=== PATIENT | female | born 1990 | race Caucasian/White ===

== ENCOUNTER 2021-05-03 20:06 | Inpatient (IN) | payer OTHER ==
[2021-05-03] MEDS: ELECTROLYTE-148 SOLN 1,000 ML IV SCH (22:40)
[2021-05-03 23:21] LABS: BASO % 0.4 % (0-2.0); EOS % 0.9 % (0-4.5); HEMATOCRIT 34.8 % (32.4-45.2); HEMOGLOBIN 12.2 GM/dL (10.7-15.3); LYMPH % 21.6 % (8-40); MCH 30.1 pg (25.7-33.7); MCHC 34.9 g/dl (32.0-36.0); MEAN CELL VOLUME 86.1 fl (80-96); MEAN PLT VOLUME 8.3 fl (7.5-11.1); MONO % 7.4 % (3.8-10.2); NEUT % 69.7 % (42.8-82.8); PLATELET COUNT 258 10^3/uL (134-434); RBC 4.04 M/mm3 (3.60-5.2); RDW 13.6 % (11.6-15.6)
[2021-05-03 23:31] LABS: INR 0.9 (0.83-1.09); PROTHROMBIN TIME (PATIENT) 10.5 SEC (9.7-13.0)
[2021-05-03 23:33] LABS: ACTIVATED PTT 23.3 SECONDS (25.2-36.5)
[2021-05-03 23:44] LABS: CALCIUM 9.4 mg/dL (8.5-10.1)
[2021-05-03 23:45] LABS: BLOOD UREA NITROGEN 8.2 mg/dL (7-18)
[2021-05-03 23:48] LABS: CREATININE 0.8 mg/dL (0.55-1.3)
[2021-05-03 23:54] VITALS: BMI 31.0
[2021-05-04] MEDS ORDERED: OXYTOCIN 30 UNITS in 0.9% NS 30 UNIT/500 ML INFUS.BAG IVPB SCH
[2021-05-04 00:39] LABS: HIV INTERPRETATION NEGATIVE (NEGATIVE)
[2021-05-04] MEDS ORDERED: OXYTOCIN 30 UNITS in 0.9% NS 30 UNIT/500 ML INFUS.BAG IVPB ONE (03:36)
[2021-05-04] MEDS: ELECTROLYTE-148 SOLN 1,000 ML IV SCH (10:40)
[2021-05-04] MEDS ORDERED: FENTANYL/BUPIVACAINE/NS/PF - PCEA - 50 ML DISP.SYRIN EP ONE (14:01)
[2021-05-04] MEDS ORDERED: BUPIVACAINE HCL/PF 0.25% (2.5MG/ML) 10 ML VIAL ONE (14:34)
[2021-05-04] MEDS ORDERED: NALOXONE HCL 0.4 MG/ML VIAL IVPUSH PRN (14:54)
[2021-05-04] MEDS ORDERED: FENTANYL/BUPIVACAINE/NS/PF - PCEA - 50 ML DISP.SYRIN EP SCH (15:00)
[2021-05-04] MEDS ORDERED: LIDOCAINE HCL/EPINEPHRINE/PF 10 ML VIAL ONE (18:12)
[2021-05-04] MEDS ORDERED: OXYTOCIN 20 UNITS in 0.9% NS 20 UNIT/1,000 ML INFUS.BAG IV ONE (18:13)
[2021-05-04] MEDS ORDERED: LIDOCAINE 1%/EPI 1:100000 (20 ML MULTI DOSE VIAL) ONE (18:13)
[2021-05-04] MEDS ORDERED: LIDOCAINE HCL 1% PRESERVATIVE FREE - 30ML VIAL ONE (18:14)
[2021-05-04] MEDS ORDERED: PCA PUMP NR ONE (18:14)
[2021-05-04] MEDS ORDERED: morphine SULFATE/PF 1 MG/2 ML (2cc Syringe - QUVA) ONE (18:26)
[2021-05-04] MEDS ORDERED: CITRIC ACID/SODIUM CITRATE 30 ML UNIT-DOSE CUP PO ONE (18:30)
[2021-05-04] MEDS ORDERED: morphine SULFATE/PF 1 MG/2 ML (2cc Syringe - QUVA) EP ONE (20:42)
[2021-05-04] MEDS ORDERED: ONDANSETRON 4 MG/2 ML VIAL IVPUSH PRN (20:42)
[2021-05-04] MEDS ORDERED: IBUPROFEN 600 MG TABLET (FP) PO PRN (20:43)
[2021-05-04] MEDS ORDERED: BENZOCAINE 28 GM HEMORRHOIDAL OINTMENT TP PRN (20:43)
[2021-05-04] MEDS ORDERED: BENZOCAINE 20% 57 GM BOTTLE TP PRN (20:43)
[2021-05-04] MEDS ORDERED: ACETAMINOPHEN 325 MG TABLET (FP) PO PRN (20:43)
[2021-05-04] MEDS ORDERED: WITCH HAZEL 50% (TUCKS) 40 PAD/JAR PAD TP PRN (20:43)
[2021-05-04] MEDS ORDERED: METHYLERGONOVINE MALEATE 0.2 MG/1 ML AMP IM PRN (20:43)
[2021-05-04 21:53] LABS: CORD HCO3 17.6 mmHg (20-29); CORD pH 7.209 (7.14-7.44)
[2021-05-04 21:57] LABS: CORD BASE EXCESS -9.6 mmol/L (0-2); CORD HCO3 17.2 mmHg (20-29); CORD PCO2 40.4 mmHg (30-78); CORD pH 7.246 (7.14-7.44)
[2021-05-04] MEDS: IBUPROFEN 800 MG/8 ML IJ IVPB PRN (22:16)
[2021-05-04] MEDS: OXYTOCIN 20 UNITS in 0.9% NS 20 UNIT/1,000 ML INFUS.BAG IV SCH (23:33)
[2021-05-05] MEDS: OXYTOCIN 20 UNITS in 0.9% NS 20 UNIT/1,000 ML INFUS.BAG IV SCH (04:47)
[2021-05-05] MEDS: IBUPROFEN 800 MG/8 ML IJ IVPB PRN (05:35)
[2021-05-05 08:12] LABS: BASO % 0.1 % (0-2.0); HEMATOCRIT 26.2 % (32.4-45.2); LYMPH % 9.3 % (8-40); MCH 29.5 pg (25.7-33.7); MCHC 34.2 g/dl (32.0-36.0); MEAN CELL VOLUME 86.4 fl (80-96); MEAN PLT VOLUME 8.1 fl (7.5-11.1); MONO % 6.5 % (3.8-10.2); NEUT % 84.1 % (42.8-82.8); PLATELET COUNT 184 10^3/uL (134-434); RBC 3.03 M/mm3 (3.60-5.2); RDW 13.6 % (11.6-15.6); WHITE BLOOD COUNT 15.3 K/mm3 (4.0-10.0)
[2021-05-05] MEDS ORDERED: oxyCODONE HCL 5 MG TABLET PO PRN (08:43)
[2021-05-05] MEDS: PRENATAL VITAMINS W/ FOLIC ACID TABLET (FP) PO SCH (09:01)
[2021-05-05] MEDS: ENOXAPARIN NA (PORCINE) 40 MG/0.4 ML DISP.SYRIN SQ SCH (09:04)
[2021-05-05] MEDS: IBUPROFEN 600 MG TABLET (FP) PO PRN ×2 (11:25→20:32)
[2021-05-05] MEDS: ACETAMINOPHEN 325 MG TABLET (FP) PO PRN ×2 (11:26→18:15)
[2021-05-05] MEDS: oxyCODONE HCL 5 MG TABLET PO PRN (15:42)
[2021-05-05] MEDS: SIMETHICONE 80 MG TAB.CHEW (FP) PO PRN ×2 (18:16→20:31)
[2021-05-05] MEDS: ELECTROLYTE-148 SOLN 1,000 ML IV SCH (20:09)
[2021-05-05] MEDS ORDERED: BISACODYL 10 MG SUPP.RECT RC PRN (20:43)
[2021-05-06] MEDS: oxyCODONE HCL 5 MG TABLET PO PRN (05:55)
[2021-05-06] MEDS: ENOXAPARIN NA (PORCINE) 40 MG/0.4 ML DISP.SYRIN SQ SCH (10:15)
[2021-05-06] MEDS: IBUPROFEN 600 MG TABLET (FP) PO PRN ×3 (10:15→21:45)
[2021-05-06] MEDS: PRENATAL VITAMINS W/ FOLIC ACID TABLET (FP) PO SCH (10:15)
[2021-05-06] MEDS: SIMETHICONE 80 MG TAB.CHEW (FP) PO PRN ×2 (10:15→16:12)
[2021-05-06] MEDS: DOCUSATE SODIUM 100 MG CAPSULE (FP) PO PRN (10:16)
[2021-05-06] MEDS ORDERED: DEXTROSE 5%-NORMAL SALINE 1,000 ML IV SCH (11:15)
[2021-05-06 12:04] LABS: BASO % 0.1 % (0-2.0); EOS % 0.3 % (0-4.5); HEMATOCRIT 30.7 % (32.4-45.2); HEMOGLOBIN 10.3 GM/dL (10.7-15.3); LYMPH % 8.6 % (8-40); MCH 29.2 pg (25.7-33.7); MCHC 33.6 g/dl (32.0-36.0); MEAN CELL VOLUME 87.2 fl (80-96); MEAN PLT VOLUME 7.8 fl (7.5-11.1); MONO % 3.4 % (3.8-10.2); NEUT % 87.6 % (42.8-82.8); PLATELET COUNT 233 10^3/uL (134-434); RBC 3.52 M/mm3 (3.60-5.2); RDW 13.7 % (11.6-15.6); WHITE BLOOD COUNT 14.9 K/mm3 (4.0-10.0)
[2021-05-06 12:13] LABS: INR 1.04 (0.83-1.09); PROTHROMBIN TIME (PATIENT) 11.6 SEC (9.7-13.0)
[2021-05-06 12:16] LABS: ACTIVATED PTT 29.4 SECONDS (25.2-36.5)
[2021-05-06 12:26] LABS: ALBUMIN 2.2 g/dl (3.4-5.0); BLOOD UREA NITROGEN 7.2 mg/dL (7-18); CALCIUM 8.5 mg/dL (8.5-10.1)
[2021-05-06 12:30] LABS: CREATININE 0.8 mg/dL (0.55-1.3)
[2021-05-06 12:31] LABS: BILIRUBIN,TOTAL 0.4 mg/dL (0.2-1); TOT PROT 5.5 g/dl (6.4-8.2)
[2021-05-07 07:54] LABS: BASO % 0.2 % (0-2.0); EOS % 0.9 % (0-4.5); HEMOGLOBIN 9.1 GM/dL (10.7-15.3); LYMPH % 11.8 % (8-40); MCH 30.4 pg (25.7-33.7); MCHC 34.8 g/dl (32.0-36.0); MEAN CELL VOLUME 87.2 fl (80-96); MEAN PLT VOLUME 8.5 fl (7.5-11.1); MONO % 4.4 % (3.8-10.2); NEUT % 82.7 % (42.8-82.8); PLATELET COUNT 206 10^3/uL (134-434); RBC 2.98 M/mm3 (3.60-5.2); RDW 13.8 % (11.6-15.6); WHITE BLOOD COUNT 9.2 K/mm3 (4.0-10.0)
[2021-05-07] MEDS: IBUPROFEN 600 MG TABLET (FP) PO PRN ×3 (08:19→21:09)
[2021-05-07] MEDS: SIMETHICONE 80 MG TAB.CHEW (FP) PO PRN ×2 (10:02→21:09)
[2021-05-07] MEDS: ENOXAPARIN NA (PORCINE) 40 MG/0.4 ML DISP.SYRIN SQ SCH (10:48)
[2021-05-07] MEDS: PRENATAL VITAMINS W/ FOLIC ACID TABLET (FP) PO SCH (10:48)
[2021-05-07] MEDS: ACETAMINOPHEN 325 MG TABLET (FP) PO PRN (17:04)
[2021-05-07] MEDS: DOCUSATE SODIUM 100 MG CAPSULE (FP) PO PRN (21:09)
[2021-05-08] MEDS: SIMETHICONE 80 MG TAB.CHEW (FP) PO PRN (07:50)
[2021-05-08] MEDS: IBUPROFEN 600 MG TABLET (FP) PO PRN (07:51)
[2021-05-08 08:55] VITALS: BP 117/70; PULSE 73; TEMP 98.3
[2021-05-08] MEDS: ENOXAPARIN NA (PORCINE) 40 MG/0.4 ML DISP.SYRIN SQ SCH (09:06)
[2021-05-08] MEDS: PRENATAL VITAMINS W/ FOLIC ACID TABLET (FP) PO SCH (09:06)
== END 2021-05-08 16:35 | disposition home or self-care (01) | DRG 787 ==
LOC: JDEL 20:06 → JLDR 21:00 → J3W 05-04 22:00
PROVIDERS: ADMIT Obstetrics & Gynecology; ATTEND Obstetrics & Gynecology
PROC: 10D00Z1 Extraction of Products of Conception, Low, Open Approach (ICD-10-PCS; principal; 2021-05-04)
DX: O36.8330 Maternal care for abnormalities of the fetal heart rate or rhythm, third trimester, not applicable or unspecified (principal); K56.7 Ileus, unspecified; D62 Acute posthemorrhagic anemia; O61.0 Failed medical induction of labor; O99.02 Anemia complicating childbirth; O99.62 Diseases of the digestive system complicating childbirth; O42.92 Full-term premature rupture of membranes, unspecified as to length of time between rupture and onset of labor; O42.90 Premature rupture of membranes, unspecified as to length of time between rupture and onset of labor, unspecified weeks of gestation; Z3A.38 38 weeks gestation of pregnancy; Z37.0 Single live birth
CPT/HCPCS: 36415; 36600; 59025; 74018-TC-FY; 80048; 80053; 82803; 85025; 85610; 85730; 86780; 86850; 86900; 86901; 87389; 88304-TC; 88307-TC; C9803; U0003; U0005

== ENCOUNTER 2024-12-02 05:15 | Inpatient (IN) | payer OTHER ==
[2024-12-02] MEDS: ELECTROLYTE-148 SOLN 500 ML IV SCH (05:45)
[2024-12-02 05:58] VITALS: BMI 31.1
[2024-12-02 06:38] LABS: ABSOLUTE IMMATURE GRANULOCYTES 0.03 x10^3/uL (0.0-0.031); BASOPHILS # 0.03 x10^3/uL (0.01-0.08); EOSINOPHIL % 1.0 % (0.7-5.8); EOSINOPHILS # 0.05 x10^3/uL (0.04-0.36); MCHC 33.3 g/dl (32.2-35.5); MEAN CELL VOLUME 86.1 fl (79.4-94.8); MEAN PLT VOLUME 9.9 fl (9.4-12.3); MONOCYTE # 0.58 x10^3/uL (0.24-0.86); MONOCYTE % 11.4 % (4.7-12.5); RDW 13.4 % (12.1-16.8)
[2024-12-02 06:42] LABS: INR 0.97 (0.83-1.09); PROTHROMBIN TIME (PATIENT) 10.6 SEC (9.7-13.0)
[2024-12-02 06:45] LABS: ACTIVATED PTT 27.3 SECONDS (25.2-36.5)
[2024-12-02 07:00] LABS: CO2 20.0 mmol/L (21-32); GLUCOSE,RANDOM 73.0 mg/dL (74-106)
[2024-12-02 07:03] LABS: CREATININE 0.7 mg/dL (0.55-1.3)
[2024-12-02] MEDS: CITRIC ACID/SODIUM CITRATE 30 ML UNIT-DOSE CUP PO ONE (07:37)
[2024-12-02] MEDS: ELECTROLYTE-148 SOLN 1,000 ML IV SCH (07:45)
[2024-12-02] MEDS ORDERED: OXYTOCIN 30 UNITS in 0.9% NS 30 UNIT/500 ML INFUS.BAG IVPB ONE (07:52)
[2024-12-02] MEDS ORDERED: morphine SULFATE/PF 1 MG/2 ML (2cc Syringe - QUVA) ONE (07:53)
[2024-12-02] MEDS ORDERED: FENTANYL CITRATE/PF 50 MCG/ML VIAL ONE (07:53)
[2024-12-02] MEDS ORDERED: ONDANSETRON 4 MG/2 ML VIAL ONE (07:54)
[2024-12-02] MEDS ORDERED: PHENYLEPHRINE HCL 10 MG/1 ML SINGLE DOSE VIAL ONE (07:54)
[2024-12-02] MEDS ORDERED: METHYLERGONOVINE MALEATE 0.2 MG/1 ML AMP IM PRN (08:08)
[2024-12-02] MEDS ORDERED: SENNOSIDES/DOCUSATE COMBO (SENNA PLUS) TABLET (UD) PO PRN (08:08)
[2024-12-02] MEDS ORDERED: KETOROLAC TROMETHAMINE 30 MG/1 ML VIAL ONE (09:44)
[2024-12-02] MEDS: OXYTOCIN 20 UNITS in 0.9% NS 20 UNIT/1,000 ML INFUS.BAG IV SCH (10:05)
[2024-12-02] MEDS ORDERED: OXYTOCIN 20 UNITS in 0.9% NS 20 UNIT/1,000 ML INFUS.BAG IV ONE (10:07)
[2024-12-02] MEDS ORDERED: ONDANSETRON 4 MG/2 ML VIAL IVPUSH PRN (10:08)
[2024-12-02 10:14] LABS: CORD BASE EXCESS -4.3 mmol/L (0-2); CORD HCO3 22.0 mmHg (20-29); CORD PCO2 44.2 mmHg (30-78); CORD pH 7.314 (7.14-7.44)
[2024-12-02 10:14] LABS: CORD BASE EXCESS -4.7 mmol/L (0-2); CORD HCO3 24.0 mmHg (20-29); CORD PCO2 57.7 mmHg (30-78); CORD pH 7.236 (7.14-7.44)
[2024-12-02] MEDS ORDERED: IBUPROFEN (CALDOLOR) 800 MG/200 ML PREMIX BAGS IVPB ONE (11:41)
[2024-12-02] MEDS: IBUPROFEN 800 MG/8 ML IJ IVPB PRN (11:50)
[2024-12-02] MEDS: morphine SULFATE/PF 1 MG/2 ML (2cc Syringe - QUVA) IT ONE (12:58)
[2024-12-02] MEDS: PRENATAL VITAMINS W/ FOLIC ACID TABLET (FP) PO SCH (12:59)
[2024-12-02] MEDS: CEFAZOLIN 1 GM in DEXTROSE 5%-WATER - 50 ML IVPB SCH (16:18)
[2024-12-02] MEDS: SIMETHICONE 80 MG TAB.CHEW (FP) PO PRN (21:19)
[2024-12-02 22:04] VITALS: RESP 18
[2024-12-03 07:31] LABS: ABSOLUTE IMMATURE GRANULOCYTES 0.04 x10^3/uL (0.0-0.031); BASOPHILS # 0.02 x10^3/uL (0.01-0.08); EOSINOPHIL % 0.5 % (0.7-5.8); EOSINOPHILS # 0.04 x10^3/uL (0.04-0.36); MCHC 31.8 g/dl (32.2-35.5); MEAN CELL VOLUME 88.2 fl (79.4-94.8); MEAN PLT VOLUME 10.2 fl (9.4-12.3); MONOCYTE # 0.37 x10^3/uL (0.24-0.86); MONOCYTE % 5.0 % (4.7-12.5); RDW 13.7 % (12.1-16.8)
[2024-12-03] MEDS ORDERED: BISACODYL 10 MG SUPP.RECT RC PRN (08:08)
[2024-12-03] MEDS: IBUPROFEN 600 MG TABLET (FP) PO PRN (08:09)
[2024-12-03] MEDS: ENOXAPARIN NA (PORCINE) 40 MG/0.4 ML DISP.SYRIN SQ SCH (10:33)
[2024-12-03] MEDS: ACETAMINOPHEN 325 MG TABLET (FP) PO PRN (10:38)
[2024-12-03] MEDS: DOCUSATE SODIUM 100 MG CAPSULE (FP) PO PRN (10:38)
[2024-12-04] MEDS ORDERED: ELECTROLYTE-148 SOLN 1,000 ML IV SCH (21:15)
[2024-12-05 00:32] VITALS: PULSE 68
[2024-12-05 09:14] VITALS: BP 118/76; TEMP 97.9
[2024-12-05] MEDS: IBUPROFEN 600 MG TABLET (FP) PO PRN (09:15)
[2024-12-05] MEDS: SIMETHICONE 80 MG TAB.CHEW (FP) PO PRN (09:16)
== END 2024-12-05 12:45 | disposition home or self-care (01) | DRG 788 ==
LOC: JLDR 05:15 → J3W 12:30
PROVIDERS: ADMIT Obstetrics & Gynecology; ATTEND Obstetrics & Gynecology
PROC: 10D00Z1 Extraction of Products of Conception, Low, Open Approach (ICD-10-PCS; principal; 2024-12-02)
DX: O34.211 Maternal care for low transverse scar from previous cesarean delivery (principal); N85.8 Other specified noninflammatory disorders of uterus; O99.214 Obesity complicating childbirth; Z3A.39 39 weeks gestation of pregnancy; Z37.0 Single live birth
CPT/HCPCS: 36415; 36600; 59409; 80048; 82803; 85025; 85610; 85730; 86780; 86850; 86900; 86901; 88307-TC; 94010